=== PATIENT | female | born 1990 | race Caucasian/White ===

== ENCOUNTER → 2017-10-05 11:26 | Outpatient (CLI) | payer MEDICAID, SELFPAY ==
[2017-10-05 12:45] LABS: Color, Urine Yellow (Yellow); Glucose, Dipstick Normal (Normal); Ketone-Dipstick Negative (Negative); Leukocyte Esterase-Dipstick 500 /ul (Negative); Nitrite-Dipstick Negative (Negative); Occult Blood-Urine Negative /ul (Negative); Protein-Dipstick Negative (Negative); Urine Bilirubin Dipstick Negative (Negative); Urine Clarity Clear (Clear); Urine Urobilinogen Normal (Normal)
[2017-10-05 12:51] LABS: Absolute Lymphocyte Count 2.36 X10^3/ul (0.83-4.51); Absolute Neutrophil Count 11.1 X10^3/uL (2.0-7.7); Basophil# 0.02 X10^3/uL; Basophil% 0.1 % (0-1); Eosinophils% 0.7 % (0-5); Hemoglobin 11.9 g/dl (12.0-15.0); Lymphocyte # 2.36 X10^3/ul (4.0); Lymphocyte % 16.5 % (19-41); Mean Corpuscular Hgb 31.2 pg (27.0-32.0); Mean Corpuscular Volume 91.6 fL (81-99); Mean Platelet Vol. 10.3 fl (6.2-12.0); Monocyte# 0.63 X10^3/uL; Monocyte% 4.4 % (0-10); Neutrophil # 11.11 X10^3/uL (2.7-7.7); Neutrophil % 77.5 % (47-70); Platelet Count 264 K/mm3 (150-450); RBC Distribution Width CV 13.4 % (11.6-14.6); RBC Distribution Width SD 44.2 fl (35.1-43.9); Red Blood Count 3.82 M/mm3 (4.2-5.4); White Blood Count 14.3 K/mm3 (4.4-11.0)
[2017-10-05 12:52] LABS: POSITIVE COUNT NO; POSITIVE DIFFERENTIAL NO; POSITIVE MORPHOLOGY NO
[2017-10-05 13:03] LABS: COTININE Drug Screen Positive (<200 ng/mL)
[2017-10-05 13:09] LABS: Amphetamine Urine VISTA NEGATIVE (<1000 ng/mL); Barbiturate Urine VISTA NEGATIVE (< 200 ng/mL); Benzodiazepine Urine VISTA NEGATIVE (< 200 ng/mL); Cocaine Urine VISTA NEGATIVE (< 300 ng/mL); Ecstacy Urine VISTA NEGATIVE (< 500 ng/mL); Methadone Urine VISTA NEGATIVE (< 300 ng/mL); PCP Urine VISTA NEGATIVE (< 25 ng/mL); THC Urine VISTA NEGATIVE (< 50 ng/mL); Vista UDS pH Range 5
[2017-10-05 13:11] LABS: Glucose Challenge Gest 1H 50g 96 mg/dL (70-140); Thyroid Stim Hormone (TSH) 2.23 uIU/mL (0.358-3.74)
[2017-10-05 15:49] LABS: Chlamydia Trachomatis by PCR Negative (Negative); Group B Strep DNA By PCR Negative (Negative); Internal Control PASS; Neisserai gonorrhoeae by PCR Negative (Negative); Probe Check PASS; Sample Adequacy Control PASS; Specimen Processing Control PASS
[2017-10-06 04:36] LABS: Prenatal RPR NONREACTIVE (NONREACTIVE)
[2017-10-06 11:45] LABS: HEPATITIS B SURFACE AG Negative (Negative); Hep C Antibodies <0.1 s/co ratio (0.0-0.9)
[2017-10-06 12:21] LABS: HIV - WCH Non-Reactive (Nonreactive); Rubella IgG 49.3 IU/mL
== END ==
PROVIDERS: Visit Provider Obstetrics & Gynecology
DX: Z34.83 Encounter for supervision of other normal pregnancy, third trimester (principal); Z11.3 Encounter for screening for infections with a predominantly sexual mode of transmission
CPT/HCPCS: 36415; 80307; 81002; 82950; 84443; 85025; 86703; 86762; 86803; 87081; 87340; 87491; 87591; 87653

== ENCOUNTER 2017-10-10 06:35 | Inpatient (IN) | payer MEDICAID, SELFPAY ==
[2017-10-10 06:37] LABS: ROM Internal Control Test YES-OK TO RESULT pt. (Internal QC); ROM Patient Test POSITIVE (Negative)
[2017-10-10 06:50] VITALS: BMI 31.0
[2017-10-10 06:51] LABS: Amphetamine Urine VISTA NEGATIVE (<1000 ng/mL); Barbiturate Urine VISTA NEGATIVE (< 200 ng/mL); Benzodiazepine Urine VISTA NEGATIVE (< 200 ng/mL); Cocaine Urine VISTA NEGATIVE (< 300 ng/mL); Ecstacy Urine VISTA NEGATIVE (< 500 ng/mL); Methadone Urine VISTA NEGATIVE (< 300 ng/mL); PCP Urine VISTA NEGATIVE (< 25 ng/mL); THC Urine VISTA NEGATIVE (< 50 ng/mL); Vista UDS pH Range 5
[2017-10-10] MEDS: Lactated Ringers 1,000 ML 50 ML IV ×3 (06:58→09:51)
[2017-10-10 07:11] LABS: Hematocrit 34.5 % (37-47); Hemoglobin 11.5 g/dl (12.0-15.0); Mean Corp Hgb Conc 33.3 g/gl (32-36); Mean Corpuscular Hgb 30.4 pg (27.0-32.0); Mean Corpuscular Volume 91.3 fL (81-99); Mean Platelet Vol. 9.9 fl (6.2-12.0); Platelet Count 263 K/mm3 (150-450); RBC Distribution Width CV 13.8 % (11.6-14.6); RBC Distribution Width SD 45.2 fl (35.1-43.9); Red Blood Count 3.78 M/mm3 (4.2-5.4); White Blood Count 15.5 K/mm3 (4.4-11.0)
[2017-10-10 07:18] LABS: Scan Indicated on CBC? Y/N NO
[2017-10-10] MEDS: Oxytocin 30 units/NS 500 ml 30 UNITS/500 ML IV.SOLN 334 UNITS IV (12:00)
--- NOTE | 2017-10-10 12:18 | PCM.OB.VAG ---
Vaginal Delivery Maternal Presentation: Active Labor Presented at 37 weeks in active labor Amniotic Membrane Rupture Type: Spontaneous Rupture of Membrane time: 06 Amniotic Fluid Description: Clear Final TI: 10/25/17 Final TI Source: US >20 weeks Gestational age: 37 Weeks and 6 Days Date of Procedure: 10/10/17 Pre-Operative Diagnosis: labor Post-Operative Diagnosis: same Surgery/ Procedure Performed: Spontaneous Vaginal Delivery Anesthesiologist: Luis Ivy Type of Anesthesia: Epidural Description of Procedure: Admitted at 3 cm dilated progressed to FD over 5 hours then pushed for about 20 minutes to delivery a live male apgars of 8/9. Placenta delivered spontaneously intact with a centrally located 3VC. Uterus contracted well. Small bilateral perurethral first degree tears repaired with 3-0 Rapide suture. Presentation: Vertex Placental Delivery Description: Spontaneous Placenta Disposition: [facility] Percentage of Placenta Abruption: 0 Cord Vessel Description: 3 Vessels Nuchal Cord Compression: Without compression Cord Entanglement: None Drain: Evangelista to straight drain Estimated Blood Loss: 200cc Infant A gender: Male (1 minute): 8 (5 minute): 9 Episiotomy Description: None Laceration: Periurethral Extnsion/lac, 1st degree Medications given after delivery: IV Pitocin Complications: None
[2017-10-10] MEDS: Oxytocin 30 units/NS 500 ml 30 UNITS/500 ML IV.SOLN 167 UNITS IV (12:30)
[2017-10-10] MEDS: 0.9% Saline Lock 10 ML Syringe IV (13:25)
[2017-10-10 16:00] VITALS: BP 108/62; PULSE 100; RESP 18; TEMP 37.1; O2SAT 98
--- NOTE | 2017-10-10 16:33 | CASEMGMT ---
Social Work Labor and Delivery Unit Summary: This insurance writer alerted by veterinary surgeon and nursing staff regarding mother of baby (MOB) presentation for delivery, late and limited care, reported father of baby (FOB) incarcerated. Planned to see MOB tomorrow, as just delivered today. A visitor arrived to the unit to see patient, asking for MOB by name, and asked to go to patients room. There were no visitor restrictions so male allowed onto the unit. Upon entering the unit FOB then stopped at the desk and asked to speak with staff about DNA testing and that MOB does not know that this man is on the unit. This insurance writer and RN Arely Collins met with male visitor in a private room. Listened to male visitors expressed concerns for baby and about MOB. Male visitor identifies self as Randall Dempsey. Randall reports to have had a sexual relationship with MOB about the time that conception would have occurred, and that believes self to be the father. Randall reports the man that MOB is alleging to be the father is in long term due to heave drugs. Randall reports concern that MOB may have been using methamphetamines, due to MOB up and quitting job recently, reportedly acting erratic at work and raging. Randall reports has not seen MOB in quite some time, but has gotten reports from MOBs previous boss. Randall then showed this insurance writer and RN pictures of a baby, telling this insurance writer that the baby is MOBs and that was given this information by MOBs old boss. Randall reports has gone to child support and S about concerns for baby and wanting to have access to baby. Randall reports wish to establish paternity and that has filed on the putative father registry. This insurance writer informed Randall that will need to do some checking to see if this person (MOB) is on the unit and if on the unit MOB would have to agree to visit, and that staff cannot divulge private information, but can listen. This insurance writer asked Randall to wait outside the unit, which Randall complied with, without any type of issues. Met with MOB in room, along with JERAMIE Mcgee and incoming JERAMIE Lee. Asked MOBs mother to leave room for private conversation. MOB asked MOBs mom, via sign language, to leave the room. MOB's mother uses sign language for communication. This insurance writer introduced to self and reason for visit. Informed MOB about male visitor, identifying self as Randall Dempsey, claims to be the father, and wish to see the baby. MOB affect tense, not much of response. Informed MOB that Randall showed this insurance writer pictures of the baby, and that someone has told Randall of MOB delivering the baby. Asked MOB whether would like this person to visit, and whether this man is a potential father. MOB reports this man could be a father technically but that this man has not been around at all during , has no involvement with MOB. MOB reports does not want to see this man, nor to have this man see the baby. Educated MOB that cannot restrict visitors unless MOB becomes Do Not Publish. Educated to what this means, importance of keeping visitor numbers small, and that if MOB has many people coming in and out this will negate the whole purpose of restricting visitors. MOB expressed understanding. MOB chose elephant as the code word. Informed MOB that this insurance writer would be back tomorrow to talk with MOB further. Met with Randall outside of the unit. Informed Randall that appreciate concerns that Randall has expressed, that this insurance writer gets calls frequently with concerns about delivering mothers, that some concerns are valid and some are not. Explained that takes all concerns seriously. Educated Randall that at this time cannot confirm or deny whether the woman and the baby that Randall came to see are on the unit or not. Educated Randall that as an unmarried male in the [facility], Randall is taking the right steps to establish paternity. Randall inquiring whether if DNA is established, whether will be able to get the babys medical records. Educated that DNA establishment does not qualify Randall to have access to medical records, that this would have to be established through custody, releases of information, or court order. Randall remained calmed, thanked this insurance writer, and stated intent to go and finish application at child support. Talked with nursing staff about obtaining a drug screen for baby in light of allegations being made about maternal drug use, though this insurance writer has no proof of allegations to be true, one of the potential fathers allegedly being incarcerated for drugs, and maternal late/limited care. Assessment: MOB cooperative though affect tense and constricted during social workers brief interaction. Randall calm and respectful in interactions. Plan: Will plan to see MOB tomorrow for assessment. -PAVEL Lovelace MSW
[2017-10-10] MEDS: Ibuprofen 600 MG Tablet PO (20:02)
[2017-10-10 20:05] VITALS: BP 122/75; PULSE 94; RESP 18; TEMP 37.2; O2SAT 96
[2017-10-11 01:00] VITALS: BP 95/55; PULSE 85; RESP 18; TEMP 37.5
[2017-10-11] MEDS: Ibuprofen 600 MG Tablet PO ×2 (02:05→11:44)
[2017-10-11 04:00] VITALS: BP 90/53; PULSE 68; RESP 18; TEMP 36.3
[2017-10-11 04:41] LABS: Hematocrit 31.7 % (37-47); Hemoglobin 10.6 g/dl (12.0-15.0); Mean Corp Hgb Conc 33.4 g/gl (32-36); Mean Corpuscular Hgb 30.9 pg (27.0-32.0); Mean Corpuscular Volume 92.4 fL (81-99); Mean Platelet Vol. 9.9 fl (6.2-12.0); Platelet Count 237 K/mm3 (150-450); RBC Distribution Width CV 13.7 % (11.6-14.6); RBC Distribution Width SD 45.3 fl (35.1-43.9); Red Blood Count 3.43 M/mm3 (4.2-5.4); White Blood Count 17.5 K/mm3 (4.4-11.0)
[2017-10-11 04:42] LABS: Scan Indicated on CBC? Y/N NO
--- NOTE | 2017-10-11 08:29 | PCM.PN.OB ---
Subjective: Doing well no complaints. Bleeding appropriate. Objective: Afeb VSS - Physical Exam General: Alert, Oriented x3, Cooperative, No apparent distress Lungs: Clear to auscultation, Normal air movement Cardiovascular: Regular rate, Regular Rhythm Abdomen: Soft, Non Tender, Non-Distended Extremities: No edema Skin: No rashes Neurological: Neuro grossly intact Psych/Mental Status: Normal Affect Comment: Lochia appropriate Vital Signs Temp Pulse Resp BP Pulse Ox 97.3 F L 68 18 90/53 L 96 10/11/17 04:00 10/11/17 04:00 10/11/17 04:00 10/11/17 04:00 10/10/17 20:05 Oxygen Delivery Method Room Air Weight: 186 lb 11.704 oz Body Mass Index (BMI) 31.0 Intake and Output for Last 24 Hours 10/09/17 10/10/17 10/11/17 23:59 23:59 23:59 Intake Total 2139 / 2139 Balance 2139 / 2139 Laboratory Tests Past 24 Hrs 10/10/17 10/11/17 06:55 04:25 WBC 17.5 H RBC 3.43 L Hgb 10.6 L Hct 31.7 L MCV 92.4 MCH 30.9 MCHC 33.4 RDW 13.7 RDW Differential 45.3 H Plt Count 237 MPV 9.9 Blood Type O POSITIVE Antibody Screen NEGATIVE Medical Necessity - Tobacco Use Smoking Status: Heavy Smoker (>10/day) Assessment/Plan Doing well. No complaints. Continue routine PP care.
[2017-10-11 09:13] VITALS: BP 106/52; PULSE 87; RESP 18; TEMP 37.1; O2SAT 96
[2017-10-11] MEDS: Prenatal Vits Tablet 1 TABLET PO (11:45)
[2017-10-11 11:58] VITALS: BP 91/50; PULSE 79; RESP 16; TEMP 37.2; O2SAT 98
[2017-10-11 16:23] VITALS: BP 101/61; PULSE 84; RESP 16; TEMP 36.8; O2SAT 96
[2017-10-11] MEDS: Acetaminophen 500 MG Tablet 1000 MG PO (16:33)
[2017-10-11 19:31] VITALS: BP 107/54; PULSE 79; RESP 18; TEMP 36.8
[2017-10-12] MEDS: Ibuprofen 600 MG Tablet PO ×2 (00:42→08:38)
[2017-10-12 00:56] VITALS: BP 107/61; PULSE 89; RESP 16; TEMP 36.6
--- NOTE | 2017-10-12 06:29 | PCM.PN.OB ---
Subjective: No specific complaints. Breast feeding. Bleeding light. Objective: Afeb VSS - Physical Exam General: Alert, Oriented x3, Cooperative, No apparent distress Lungs: Clear to auscultation, Normal air movement Cardiovascular: Regular rate, Regular Rhythm Abdomen: Soft, Non Tender, Non-Distended, - - Fundus nontender Extremities: No edema, No Calf Tenderness Skin: No rashes Neurological: Neuro grossly intact Psych/Mental Status: Normal Affect Comment: LOchia light Vital Signs Temp Pulse Resp BP Pulse Ox 97.9 F 89 16 107/61 96 10/12/17 00:56 10/12/17 00:56 10/12/17 00:56 10/12/17 00:56 10/11/17 16:23 Oxygen Delivery Method Room Air Weight: 186 lb 11.704 oz Body Mass Index (BMI) 31.0 Intake and Output for Last 24 Hours 10/10/17 10/11/17 10/12/17 23:59 23:59 23:59 Intake Total 2138 / 2138 Balance 2138 Medical Necessity - Tobacco Use Smoking Status: Heavy Smoker (>10/day) Assessment/Plan Doing well on PP day#2. Cleared for discharge home today. Home going instructions and warnings given.
--- NOTE | 2017-10-12 06:31 | PCM.DC.SUM ---
Discharge Date and Diagnosis Date of Admission: 09/12/17 Date of Discharge: 10/12/17 - Primary Discharge Diagnosis S/P Hospital Course and Treatment Consultations 10/10/17 06:41 Consult: Anesthesia Routine Comment: Reason For Exam: Operations: None Procedures: - - , epidural Summary of Care Provided: The patient is a 27 year old F [presented in active labor. Progressed to FD then pushed to deliver a live without complication. Post course unremarkable. Discharged home on PP day#2.] Discharge Diet: No Restrictions Discharge Activity: Return to Normal Activity, May Drive, May Shower Return to work on:: 12/11/17 May shower in (days): 0 May resume sexual activity in: 6 weeks Call your doctor if your incision/area has: Sudden Increased Bleeding, Foul Smelling Discharge Call your doctor if you observe: Fever of 101 or Higher, Inability to urinate, Inability to have a bowel movement, Using more than one pad per hour, Shortness of breath, Chest pain, Calf discomfort, Uncontrolled pain Cleanse incision/area with: Soap & Water Home Medications: Medications to take at Discharge Pnv 11-Iron Fum-Folic Acid-Om3 [Virt-Faheem Dha Softgel] 1 each PO 10/10/17 Primary Care Physician: Care Physician,No Primary [Primary Care Provider] - Please Follow Up With: Naldo Burciaga MD When: 6 weeks Disposition: Home Minutes spent on discharge:: 15 Patient Condition:: Good Medical Necessity - Tobacco Use Smoking Status: Heavy Smoker (>10/day) Meaningful Use Info Meaningful Use Diagnoses (Choose all that apply): None applicable
--- NOTE | 2017-10-12 06:36 | DCINST_ITS ---
Discharge Diet: No Restrictions Discharge Activity: Return to Normal Activity, May Drive, May Shower Return to work on:: 12/11/17 May shower in (days): 0 May resume sexual activity in: 6 weeks Call your doctor if your incision/area has: Sudden Increased Bleeding, Foul Smelling Discharge Call your doctor if you observe: Fever of 101 or Higher, Inability to urinate, Inability to have a bowel movement, Using more than one pad per hour, Shortness of breath, Chest pain, Calf discomfort, Uncontrolled pain Cleanse incision/area with: Soap & Water Additional Instructions: If you experience any of the following, contact your healthcare provider. * Bleeding that soaks a pad every hour for 2 hours * Fever 100.4 or higher * Unrelieved incision or abdominal pain * Swelling, redness, discharge or bleeding from your incision or episiotomy site * Your incision begins to separate * Problems urinating (including inability to urinate or burning while urinating) . * Visual changes * Severe headache * Flu-like symptoms * Pain or redness in one of both of your breasts * Pain, warmth, tenderness or swelling in your legs, especially the calf area * Frequent nausea and vomiting * Symptoms of depression or anxiety If you experience any of the following, call 911 or go to the nearest Emergency Room. * Chest pain * Problems breathing * Seizure activity * Partial or complete paralysis of a body part, slurred speech, weakness or drooping of the face, or a sudden inability to walk or hold your balance Allergies/Adverse Reactions: Allergies No Known Allergies Allergy (Verified 10/10/17 06:50) Medications to take at Discharge Pnv 11-Iron Fum-Folic Acid-Om3 [Virt-Faheem Dha Softgel] 1 each PO 10/10/17 Ibuprofen 600 mg PO 4X/DAY PRN #30 tab 10/12/17 The following prescriptions were given: Ibuprofen 600 mg PO 4X/DAY PRN #30 tab PRN Reason: pain or cramping Please Follow Up With: Naldo Burciaga MD When: 6 weeks Primary Care Physician: Care Physician,No Primary [Primary Care Provider] - Test Results: Test results from this visit will be discussed in further detail at your follow- up appointment, if applicable. Proposed Discharge Date: 10/12/17
[2017-10-12 08:25] VITALS: BP 105/57; PULSE 82; RESP 16; TEMP 37.7; O2SAT 97
--- NOTE | 2017-10-12 11:05 | CASEMGMT ---
Social Work Assessment Labor and Delivery Unit Date of Referral: 10/10/2017 Time of Referral: 1200 Referred By: verbal notification from nursing and student assistant Date of Intervention: 10/12/2017 Time of Intervention: 1100 Reason for Referral: Late and limited care - one OBGYN visit at 37 weeks; alleged father of baby incarcerated at this time History obtained from: Medical record and patient/mother of baby (MOB) [facility] Household composition: MOB, MOBs mother, and MOBs stepfather. MOB intends for baby boy Xavier Salinas to return to this home at time of discharge. MOB reports alleged father Rodney Salinas will also be living in this home, starting at the end of November 2017. Patient's parent/guardian status: MOB reports currently involved with Rodney Salinas (born 12.07.86) and whom MOB believes to be the father of the baby. MOB reports has known Rodney for 11 years and this evolved into a romantic relationship. MOB unable to say however, how long has been in a romantic relationship with this man. Xavier would be the first child for MOB and Rodney together. Per MOB, Rodney has 3 other biological children and one adopted child, all girls ranging in ages of almost 9 to 6 or 7. Note, a man by the name of Randall Dempsey presented to the labor and delivery unit on 10.10.17 claiming to the be father of baby Discussed with MOB question of paternity. MOB reports there is a small remote chance that Randall could be the father, but that Randall has not been around at all this whereas Rodney has. MOB reports that Xavier looks like a mixture of MICHELLE and Rodney, rather than Randall. MOB does deny safety concerns by either Rodney or Randall. MOB denies any history of violence with Rodney, any control, intimidation or abuse of any form. Medical History: MICHELLE is G1, P0 to 1 after delivering Xavier. MIC[facility]LE [facility], and then one care visit at the OBGYN office 10.05.17 at 37 weeks. Infant born at 37 weeks, weighing 5 pounds 12 ounces, with Apgars 8 and 9. Educational Status: MOB completed through the 10th grade, dropped out in 11th grade. MOB reports has been taking [employer] classes and plans to pursue this in the next couple of months. MOB denies any issues with reading, writing, or learning comprehension. Financial Status: MOB does not currently work. MOB reports left job at [employer] in August, around the time of [facility] to [facility]. MOB reports had worked there for 7 years, but got tired of being blamed for others mistakes. MOB reports her parents are supporting MOB at this time. Infant Supplies: MOB reports a friend gave MOB a crib. Reports to have clothing, diapers, wipes, and a breast pump. MOB reports belief that has a few bottles, hoping to breast feed. MOB reports may switch to formula at some point and plans to use WIC. Childcare/Caregiver(s): MOB or MOBs mother. Transportation: MOB has a drivers permit. MOBs mother and stepfather help with transportation. Programs/Agencies Involved: MOB reports to have food and medical through [facility]. Did use [facility] one time. MOB reports intent to apply for WIC and reports interest in Early Head Start program (over [employer]). Children Services/Legal Issues: No reports of any legal issues, or children services issues for MOB. Behavioral Health Issues: Mental Health History: MOB reports a couple of years ago had some panic attacks, was prescribed Lexapro by a family doctor but took self off after a short time. MOB reports to feel anxiety is managed at this time, has learned to cope, and does not need medicine. MOB denies any history of counseling, suicidal ideation, plan, intent or past attempts. No identified thoughts of harming others. MOB reports mood is good, describing mood as in awe of the new baby. 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 MOB reports used Meth for 3 years and has been clean from this substance for a long time. MOB unable to give exact time frame, but reports it has been a long time, and denies there has been any use during this . MOB reports past history of marijuana use, denies any use in . MOB denies other illicit drug use history including heroin, cocaine, narcotic prescriptions or other drugs. MOB denies alcohol use in and does like to drink in general. MOB does smoke tobacco, at the beginning of the smoked a pack and a half a day, and by the end down to half a pack a day. History of caffeine use at the beginning of . Drug Screens: maternal screens negative on 10.05.18 and 10.10.18. 's urine drug screen negative (not the first urine, but about the third per nursing report) and meconium is pending. Family/Social Stressors: Unplanned and unexpected . MOB admits to being in denial about actually being though did suspect for a while that may be . MOB reports a couple of months prior to August started to feel movement and began to suspect, but then when went to care center for confirmation it became real. MOB reports although was in denial of the , did not consider adoption or . MOB reports delayed care from August to September due to insurance issues. MOBs current boyfriend in [facility] until at least the end of November 2017 for burglary issues, and some drug related issues. MOB reports boyfriend Rodney, who MOB believes to be the father, has issues with methamphetamines. MOB reports Rodney has identified a desire to remain sober, plans on counseling after release from [facility], and also will be on probation. Paternity is now being questioned, as a second male has come forward claiming to be the father. MOB reports unhappiness with this as the possibility is only slight and this man has not been involved with MOB at all throughout this . Support Systems: MOB reports her mother is a strong practical support, and then MOBs stepfather is a strong emotional support. MOB reports to have some friends who have been visiting and who are willing to help MOB out after discharge. Depression/Shaken Baby/Safe Sleeping: MOB educated to depression and anxiety, risk for such, and importance of seeking out help and support in the period. Educated to safe sleeping. MOB able to give appropriate response about shaken baby prevention. ASSESSMENT: MOB pleasant, cooperative and nondefensive with this filing writer. Affect full, mood calm overall though did cry and became tenser when discussion of paternity ensued. MOB remained polite, and able to express frustration about Randall coming forward now when has not been around at all during this . MOB cried when talking about paternity issues. MOB held good eye contact and did offer to this filing writer MOBs history of drug abuse. Educated MOB to recommendation of no drug use, especially while . MOB denies use of illicit substances at all during this , and denies desire or intent to start back to using. No drug screens to indicate otherwise. MOB indicated parents are sober and health supports, and that when Rodney gets out of [facility] he will be on probation and not substances including alcohol will be allowed in the home. Talked with MOB about making safe life choices and ensuring baby is safe. MOB reports to have needed baby supplies, reports to have an emotional connection to baby, and to have adequate support from parents. MOB open to Early Head Start referral, as well as information on local resources for self and baby. MOB denies any other needs for home going. Observed MOB doing skin to skin with baby, holding baby gently, talking to baby, kissing to baby and smiling at baby. MOBs interactions with baby seeming appropriate. PLAN: MOB and baby to home today. MOB has been given [facility] Community resource packet, depression packet, WIC applications, Community Action brochure and referral form for Early Head Start signed. Will monitor for babys meconium drug screen results and make referrals as indicated based on results. -PAVEL Lovelace, TITLE I DIRECTOR
--- NOTE | 2017-10-12 14:10 | CASEMGMT ---
Social Work Labor and Delivery Unit Faxed Early Head Start referral form, which mother of baby signed to [phone]. -COLLEEN Lovelace, HALVER MACHINE OPERATOR
== END 2017-10-12 12:15 | disposition home or self-care (01) | DRG 373 ==
LOC: WPOUT 06:39
PROVIDERS: Obstetrics & Gynecology; Admitting Provider Obstetrics & Gynecology; Visit Provider Obstetrics & Gynecology
DX: O99.334 Smoking (tobacco) complicating childbirth (principal); O70.0 First degree perineal laceration during delivery; Z3A.37 37 weeks gestation of pregnancy; Z37.0 Single live birth
CPT/HCPCS: 59050; 80307; 84112; 85027; 86850; 86900; 99218; J7120; A4216; G0378

== ENCOUNTER 2017-10-16 12:45 | Outpatient (CLI) | payer MEDICAID, SELFPAY | END 2017-10-16 13:45 | disposition home or self-care (01) | LOC: WPOUT 13:50 → WP 13:51 | PROVIDERS: Visit Provider Obstetrics & Gynecology | DX: Z39.1 Encounter for care and examination of lactating mother (principal) | CPT/HCPCS: 96152 ==

== ENCOUNTER → 2018-06-05 11:49 | Outpatient (CLI) | payer MEDICAID, SELFPAY ==
[2018-06-07 03:07] LABS: Chlamydia By Nucleic Acid AMP Negative (Negative)
[2018-06-07 15:02] LABS: Gonococcus By Nucleic Acid AMP Negative (Negative)
[2018-06-08 14:49] LABS: HPV HC, High Risk Positive (Negative); HPV Reflexed? YES, CHARGE PATIENT
== END ==
PROVIDERS: Visit Provider Obstetrics & Gynecology
DX: Z12.4 Encounter for screening for malignant neoplasm of cervix (principal); Z11.3 Encounter for screening for infections with a predominantly sexual mode of transmission
CPT/HCPCS: 87491; 87591; 87624; 88175; G0145

== ENCOUNTER → 2018-06-13 15:06 | Outpatient (CLI) | payer MEDICAID, SELFPAY ==
[2018-06-13 16:41] LABS: Color, Urine Yellow (Yellow); Glucose, Dipstick Normal (Normal); Ketone-Dipstick Negative (Negative); Leukocyte Esterase-Dipstick 25 /ul (Negative); Nitrite-Dipstick Negative (Negative); Occult Blood-Urine Negative /ul (Negative); Protein-Dipstick Negative (Negative); Specific Gravity, Urine 1.015 (1.002-1.030); Urine Bilirubin Dipstick Negative (Negative); Urine Clarity Clear (Clear); Urine Urobilinogen Normal (Normal)
[2018-06-13 16:43] LABS: Absolute Lymphocyte Count 2.26 X10^3/ul (0.83-4.51); Absolute Neutrophil Count 8.6 X10^3/uL (2.0-7.7); Basophil# 0.02 X10^3/uL; Basophil% 0.2 % (0-1); Eosinophil# 0.09 X10^3/uL; Eosinophils% 0.8 % (0-5); Hematocrit 34.3 % (37-47); Hemoglobin 11.7 g/dl (12.0-15.0); Lymphocyte # 2.26 X10^3/ul (4.0); Lymphocyte % 19.5 % (19-41); Mean Corp Hgb Conc 34.1 g/gl (32-36); Mean Corpuscular Hgb 30.8 pg (27.0-32.0); Mean Corpuscular Volume 90.3 fL (81-99); Mean Platelet Vol. 9.9 fl (6.2-12.0); Monocyte# 0.56 X10^3/uL; Monocyte% 4.8 % (0-10); Neutrophil % 74.1 % (47-70); Platelet Count 288 K/mm3 (150-450); RBC Distribution Width CV 13.3 % (11.6-14.6); White Blood Count 11.6 K/mm3 (4.4-11.0)
[2018-06-13 16:48] LABS: POSITIVE COUNT NO; POSITIVE DIFFERENTIAL NO; POSITIVE MORPHOLOGY NO
[2018-06-13 16:53] LABS: COTININE Drug Screen Positive (<200 ng/mL)
[2018-06-13 16:57] LABS: Amphetamine Urine VISTA NEGATIVE (<1000 ng/mL); Barbiturate Urine VISTA NEGATIVE (< 200 ng/mL); Benzodiazepine Urine VISTA NEGATIVE (< 200 ng/mL); Cocaine Urine VISTA NEGATIVE (< 300 ng/mL); Ecstacy Urine VISTA NEGATIVE (< 500 ng/mL); Methadone Urine VISTA NEGATIVE (< 300 ng/mL); PCP Urine VISTA NEGATIVE (< 25 ng/mL); THC Urine VISTA NEGATIVE (< 50 ng/mL); Vista UDS pH Range 7
[2018-06-13 16:59] LABS: Thyroid Stim Hormone (TSH) 1.25 uIU/mL (0.358-3.74)
[2018-06-13 17:40] LABS: HIV - WCH Non-Reactive (Nonreactive); Rubella IgG 43.9 IU/mL
[2018-06-15 03:41] LABS: Prenatal RPR NONREACTIVE (NONREACTIVE)
[2018-06-16 03:07] LABS: AFP MoM Value 1.46 (.); AFP Value-EIA 52.9 ng/mL (.); Comment Report (.); DIA MoM Value 1.65 (.); DIA Value-EIA 251.76 pg/mL (.); DSR (By Age) 805 (.); DSR (Second Trimester) 3725 (.); Gestational Age 17.6 WEEKS (.); Insulin Dep Diabetes No (.); Maternal Age At EDD 28.7 yr (.); hCG MoM 0.71 (.); hCG Value 18357 mIU/mL (.)
[2018-06-16 14:34] LABS: Gestat. Age Based On Ultrasound (.); HEPATITIS B SURFACE AG Negative (Negative); Hep C Antibodies <0.1 s/co ratio (0.0-0.9)
== END ==
PROVIDERS: Visit Provider Obstetrics & Gynecology
DX: Z34.82 Encounter for supervision of other normal pregnancy, second trimester (principal)
CPT/HCPCS: 36415; 80307; 81002; 82105; 82677; 84443; 84702; 85025; 86336; 86703; 86762; 86803; 87340

== ENCOUNTER 2018-07-18 00:20 | Emergency (ER) | payer MEDICAID, SELFPAY ==
[2018-07-18 00:20] VITALS: BP 116/77; PULSE 105; RESP 16; TEMP 36.9; O2SAT 96; BMI 29.6
--- NOTE | 2018-07-18 00:29 | ED.VISSUMM ---
- ER Visit Summary Date of Service: 07/18/18 Chief Complaint: External hemorrhoid History of Present Illness: The patient is a 28 F patient is G2, P1 at approximately 20 weeks gestation. She presents with an external hemorrhoid. States that she is noticed some pain of the area over the past 24 hours. States tonight, it worsened. She denies any fevers or chills. She does have some pain with moving her bowels, but is still doing this without issue. She has no history of Crohn's disease. She has no history of rectal fissure. She has been compliant with her vitamins. She is otherwise been in her normal state of health. Physical Examination: Vital signs reviewed General: Well-nourished, well-developed Head: Normocephalic, atraumatic Eyes: Pupils equal and reactive, extraocular muscles intact Neck, supple, no lymphadenopathy Heart: Regular rate and rhythm Respiratory: No distress, clear bilaterally Abdomen: Soft, nontender, nondistended, no peritoneal signs rectal exam: Patient does have a thrombosed hemorrhoid at 3 o'clock position. There is no evidence of abscess. Back: Nontender Extremities: Nontender, no edema, no cords Skin: Normal color no rash Neuro: Alert and oriented, no focal or lateralizing deficits Test Results: [] Emergency Department Course and Treatment: The patient presents with a thrombosed hemorrhoid. It was anesthetized with lidocaine with epinephrine locally. A small incision was made. Clots were able to be expressed. The hemorrhoid had significantly decreased in size. There is no persistent bleeding. Patient will be given Anusol and will continue sitz bath's. She is given outpatient surgery follow-up to have a wound reevaluation in the next 2 days. She is comfortable with this plan of care and will be discharged home. Treatment Plan: [] Disposition: Discharge Impression: 1. Thrombosed external hemorrhoid 2. Incision and drainage This note was generated with [employer] dictation software. It may contain incorrect words, spelling, and punctuation that were not noted in review of the chart prior to signing ED Disposition - Plan for ED Patient: Instructions: ED Hemorrhoids Prescriptions: Hydrocortisone Acetate Cream [Anusol Hc] 1 applic RECTAL BID PRN PRN #1 tube PRN Reason: Rectal Discomfort Referrals: Cammy Murphy MD [STAFF PHYSICIAN] - 2 Days for wound check
[2018-07-18 01:12] VITALS: BP 130/82; PULSE 70; RESP 16; O2SAT 100
== END 2018-07-18 01:13 | disposition home or self-care (01) ==
PROVIDERS: Emergency Provider Emergency Medicine
DX: O22.42 Hemorrhoids in pregnancy, second trimester (principal); Z3A.20 20 weeks gestation of pregnancy
CPT/HCPCS: 46083; 99284

== ENCOUNTER → 2018-08-29 16:44 | Outpatient (CLI) | payer MEDICAID, SELFPAY ==
[2018-08-29 17:47] LABS: Hematocrit 30.7 % (37-47); Hemoglobin 10.5 g/dl (12.0-15.0); Mean Corp Hgb Conc 34.2 g/gl (32-36); Mean Corpuscular Volume 90.6 fL (81-99); Mean Platelet Vol. 9.5 fl (6.2-12.0); Platelet Count 308 K/mm3 (150-450); RBC Distribution Width CV 13.3 % (11.6-14.6); RBC Distribution Width SD 43.3 fl (35.1-43.9); Red Blood Count 3.39 M/mm3 (4.2-5.4); White Blood Count 13.2 K/mm3 (4.4-11.0)
[2018-08-29 17:53] LABS: Glucose Challenge Gest 1H 50g 107 mg/dL (70-140)
[2018-08-29 17:56] LABS: Scan Indicated on CBC? Y/N NO
== END ==
PROVIDERS: Visit Provider Obstetrics & Gynecology
DX: Z34.83 Encounter for supervision of other normal pregnancy, third trimester (principal)
CPT/HCPCS: 82950; 85027

== ENCOUNTER 2018-09-08 12:25 | Emergency (ER) | payer MEDICAID, SELFPAY ==
[2018-09-08 12:26] VITALS: BP 109/55; PULSE 100; RESP 16; TEMP 36.1; O2SAT 95; BMI 29.8
--- NOTE | 2018-09-08 12:45 | VDUE_ITS ---
Reason For Study: SWELLING. Right Proximal Right jugular vein is spontaneous, widely patent, phasic, with no intraluminal echogenicity noted. Right subclavian vein is spontaneous, widely patent, phasic, with no intraluminal echogenicity noted. Right Lower Arm Right radial vein is compressible. Right ulnar vein is compressible. Right Arm Right axillary vein is spontaneous, patent, phasic, competent, compressible and demonstrates augmentation. Right brachial vein is compressible. Right cephalic vein is compressible. Right basilic vein is compressible. Interpretation Summary No evidence for acute deep venous thrombosis[right] upper extremity with patent and compressible cephalic and basilic veins. Ordering Physician: Nella Augustin Performed By: Kush Lopes RVT ?
--- NOTE | 2018-09-08 13:45 | ED.VISSUMM ---
- ER Visit Summary Date of Service: 09/08/18 Chief Complaint: Lump on right arm] History of Present Illness: The patient is a 28 F [presents to the emergency department with a lump in the right arm that she first noticed this morning. Patient denies any trauma. She denies any chest pain or shortness of breath. Denies recent travel or surgery. Patient is 30 weeks .] Physical Examination: [HEENT-PERRLA, EOMI. Cranial nerves II through XII grossly intact. TMs clear. Mucous membranes moist. No adenopathy. Cardiovascular-regular rate and rhythm without murmur or ectopy Lungs-clear to auscultation, chest wall stable without crepitus or subcu emphysema Abdomen-normoactive bowel sounds, soft, nontender, no rebound or rigidity, no peritoneal signs. Extremities-intact ?4, normal range of motion, normal pulses, atraumatic. Right arm-over the anterior aspect of the bicep there is an engorged vein such as a varicose vein would be. It is not firm or indurated.] Test Results: [Venous duplex of the right upper arm obtained was negative for DVT or superficial phlebitis.] Emergency Department Course and Treatment: [None indicated] Treatment Plan: [Advised patient on warm compresses to the area and follow-up with her MATERIAL HAULER. Patient also will be referred to primary care physician social media content specialist for no doc.] Disposition: [Discharged home in stable condition.] Impression: [Varicose vein right upper arm] This note was generated with [employer] dictation software. It may contain incorrect words, spelling, and punctuation that were not noted in review of the chart prior to signing ED Disposition - Plan for ED Patient: Referrals: Care Physician,No Primary [Primary Care Provider] -
--- NOTE | 2018-09-08 13:47 | ED.DEP ---
ED Disposition - Plan for ED Patient: Instructions: THROMBOPHLEBITIS, Superficial Referrals: Care Physician,No Primary [Primary Care Provider] - Shan Abbott MD [STAFF PHYSICIAN] - 3-5 Days
== END 2018-09-08 14:01 | disposition home or self-care (01) ==
PROVIDERS: Emergency Provider Emergency Medicine
DX: O22.03 Varicose veins of lower extremity in pregnancy, third trimester (principal); I86.8 Varicose veins of other specified sites; O99.333 Smoking (tobacco) complicating pregnancy, third trimester; Z3A.30 30 weeks gestation of pregnancy
CPT/HCPCS: 93971; 99283

== ENCOUNTER → 2018-10-24 14:16 | Outpatient (CLI) | payer MEDICAID, SELFPAY | PROVIDERS: Visit Provider Obstetrics & Gynecology | DX: Z36.85 Encounter for antenatal screening for Streptococcus B (principal) | CPT/HCPCS: 87081 ==

== ENCOUNTER 2018-11-16 05:35 | Inpatient (IN) | payer MEDICAID, SELFPAY ==
[2018-11-16] MEDS: Lactated Ringers 500 ML 999 ML IV (05:55)
[2018-11-16 06:03] VITALS: BMI 29.8
[2018-11-16 06:16] LABS: Absolute Lymphocyte Count 2.99 X10^3/uL (0.83-4.51); Absolute Neutrophil Count 11.7 X10^3/uL (2.0-7.7); Basophil# 0.04 X10^3/uL; Basophil% 0.3 % (0-1); Eosinophil# 0.07 X10^3/uL; Eosinophils% 0.4 % (0-5); Hematocrit 34.1 % (37-47); Lymphocyte # 2.99 X10^3/ul (4.0); Mean Corp Hgb Conc 35.2 g/dL (32-36); Mean Corpuscular Hgb 31.4 pg (27.0-32.0); Mean Corpuscular Volume 89.3 fL (81-99); Monocyte# 0.79 X10^3/uL; NRBC Flagged by Analyzer 0 % (0-5); Neutrophil # 11.73 X10^3/uL (2.7-7.7); Neutrophil % 74.6 % (47-70); Platelet Count 308 K/mm3 (150-450); RBC Distribution Width CV 13.2 % (11.6-14.6); RBC Distribution Width SD 43.3 fl (35.1-43.9); Red Blood Count 3.82 M/mm3 (4.2-5.4); White Blood Count 15.7 K/mm3 (4.4-11.0)
[2018-11-16] MEDS: Lactated Ringers 1,000 ML 200 ML IV (06:45)
--- NOTE | 2018-11-16 07:09 | PCM.HPOB.BLA ---
History and Physical Date of Admission: 11/16/18 OB HISTORY AND PHYSICAL EXAMINATION History of this : 28 yo female Ab0 with EDC 11/17/2018 by 17 weeks 4 days Ultrasound, presents to Labor and Delivery at 39 6/7 wk with CC of [facility], labor. Planning epidural care remarkable for - 1.) Both of pt's parents were born deaf, 2.) Smokes 1/2 ppd, ATQ 3.) H/O anxiety/panic attacks, treated in the past 4.) Short interval between pregnancies 5.) FOB has 4 children from previous relationships 6.) ANTERIOR placenta 7.) FOB born at 34 weeks 8.) CF testing declined, AFP tetra drawn WNL Pertinent Past Medical History: None. Allergies: No Known Allergies Medications: During - Vitamin tablet Review of Symptoms: Non-contributory PHYSICAL EXAMINATION General Appearance: 28 yo female in no acute distress Comfortable now with epidural Vital Signs: AF, VSS Heart: Lungs: regular respiratory rate Breasts: deferred Abdomen: gravid Pelvis: Cervix: 6/90/-2 slightly posterior Presentation: cephalic Station: Fetus: Size: AGA Movement: present Heart: present Category I tracing. Impression /Plan: Intrauterine . 39 6/7 wk labor. epidural placed per pt request and comfortable IBOW. Will continue labor. Consider AROM. H and P generated at time of admission 11/16/18 1343
[2018-11-16] MEDS: fentaNYL-bupivacaine (epidural) 100 ML BAG EPIDURAL (07:24)
[2018-11-16] MEDS: Ondansetron 4 MG/2 ML Vial IV (07:45)
[2018-11-16] MEDS: Oxytocin 30 units/NS 500 ml 30 UNITS/500 ML IV.SOLN 334 UNITS IV (10:30)
--- NOTE | 2018-11-16 10:39 | PCM.OPRPT ---
Vaginal Delivery Maternal Presentation: Active Labor Amniotic Membrane Rupture Type: Artificial Amniotic Fluid Description: Clear Final TI: 11/17/18 Final TI Source: US <20 weeks Gestational age: 39 Weeks and 6 Days Date of Procedure: 11/16/18 Pre-Operative Diagnosis: IUP Post-Operative Diagnosis: IUP Surgery/ Procedure Performed: Spontaneous Vaginal Delivery Type of Anesthesia: Epidural Description of Procedure: Spontaneous vaginal delivery of a viable male with Apgars of 9/9 from an occiput anterior presentation with clear amniotic fluid and normal three-vessel placenta. Cord around the neck x1 loose. No episiotomy or laceration. Sponges okay. Delivery physician: Primitivo Ivy MD. Presentation: Vertex Placental Delivery Description: Spontaneous Placenta Disposition: [facility] Cord Vessel Description: 3 Vessels Cord Gases drawn per routine: ABG Cord Entanglement: Around neck x 1, loose Estimated Blood Loss: 250 cc Infant A gender: Male (1 minute): 9 (5 minute): 9 Episiotomy Description: None Laceration: None Medications given after delivery: IV Pitocin Complications: None
--- NOTE | 2018-11-16 10:41 | DCINST_ITS ---
Discharge Diet: No Restrictions Discharge Activity: May Shower, May Take a Tub Bath May resume sexual activity in: 4-6 weeks Additional Activity Instructions:: Nothing in the vagina for 4-6 weeks. You may return to work/school in 6 weeks. Call your doctor if you observe: Fever of 101 or Higher, Inability to urinate, Inability to have a bowel movement, Using more than one pad per hour Additional Instructions: If you experience any of the following, contact your healthcare provider. * Bleeding that soaks a pad every hour for 2 hours * Unrelieved incision or abdominal pain * Swelling, redness, discharge or bleeding from your incision or episiotomy site * Your incision begins to separate * Problems urinating (including inability to urinate or burning while urinating). * Visual changes * Severe headache * Flu-like symptoms * Pain or redness in one of both of your breasts * Pain, warmth, tenderness or swelling in your legs, especially the calf area * Frequent nausea and vomiting * Symptoms of depression or anxiety If you experience any of the following, call 911 or go to the nearest Emergency Room. * Chest pain * Problems breathing * Seizure activity * Partial or complete paralysis of a body part, slurred speech, weakness or drooping of the face, or a sudden inability to walk or hold your balance Allergies/Adverse Reactions: Allergies No Known Allergies Allergy (Verified 09/08/18 12:26) Medications to take at Discharge Vits [Prenatabs FA] 1 tab PO DAILY 11/16/18 Please Follow Up With: Primitivo Ivy MD - [phone] When: Call to make an appointment with your doctor in 6 weeks. Primary Care Physician: Care Physician,No Primary [Primary Care Provider] - Test Results: Test results from this visit will be discussed in further detail at your follow- up appointment, if applicable.
--- NOTE | 2018-11-16 10:41 | PCM.DCVAG ---
Discharge Diet: No Restrictions Discharge Activity: May Shower, May Take a Tub Bath May resume sexual activity in: 4-6 weeks Additional Activity Instructions:: Nothing in the vagina for 4-6 weeks. You may return to work/school in 6 weeks. Call your doctor if you observe: Fever of 101 or Higher, Inability to urinate, Inability to have a bowel movement, Using more than one pad per hour Additional Instructions: If you experience any of the following, contact your healthcare provider. Bleeding that soaks a pad every hour for 2 hours Unrelieved incision or abdominal pain Swelling, redness, discharge or bleeding from your incision or episiotomy site Your incision begins to separate Problems urinating (including inability to urinate or burning while urinating). Visual changes Severe headache Flu-like symptoms Pain or redness in one of both of your breasts Pain, warmth, tenderness or swelling in your legs, especially the calf area Frequent nausea and vomiting Symptoms of depression or anxiety If you experience any of the following, call 911 or go to the nearest Emergency Room. Chest pain Problems breathing Seizure activity Partial or complete paralysis of a body part, slurred speech, weakness or drooping of the face, or a sudden inability to walk or hold your balance Allergies/Adverse Reactions: Allergies No Known Allergies Allergy (Verified 09/08/18 12:26) Medications to take at Discharge Vits [Prenatabs FA] 1 tab PO DAILY 11/16/18 Please Follow Up With: Primitivo Ivy MD - [phone] When: Call to make an appointment with your doctor in 6 weeks. Primary Care Physician: Care Physician,No Primary [Primary Care Provider] - Test Results: Test results from this visit will be discussed in further detail at your follow-up appointment, if applicable.
[2018-11-16 16:00] VITALS: BP 97/42; PULSE 69; RESP 16; TEMP 36.8
[2018-11-16 20:22] VITALS: BP 116/64; PULSE 90; RESP 16; TEMP 36.7; O2SAT 97
[2018-11-16] MEDS: Ibuprofen 600 MG Tablet PO (20:29)
[2018-11-17 00:10] VITALS: BP 103/51; PULSE 69; RESP 17; TEMP 36.9; O2SAT 97
[2018-11-17] MEDS: Acetaminophen 500 MG Tablet 1000 MG PO (00:36)
[2018-11-17 04:45] VITALS: BP 105/48; PULSE 80; RESP 16; TEMP 37.1
[2018-11-17 10:00] VITALS: BP 107/67; PULSE 65; RESP 16; TEMP 36.7
--- NOTE | 2018-11-17 10:29 | PCM.PN.OB ---
Subjective: Patient without complaints. Wants to go home later today if baby is able to go. - Physical Exam Vital Signs Temp Pulse Resp BP Pulse Ox 98.8 F 80 16 105/48 L 97 11/17/18 04:45 11/17/18 04:45 11/17/18 04:45 11/17/18 04:45 11/17/18 00:10 Oxygen Delivery Method Room Air Weight: 182 lb 5.156 oz Body Mass Index (BMI) 29.8 Intake and Output for Last 24 Hours 11/15/18 11/16/18 11/17/18 23:59 23:59 23:59 Intake Total 1999.00 / 1999.00 Output Total 400 / 400 Balance 1600.00 / 1600.00 Medical Necessity - Tobacco Use Smoking Status: Current every day smoker Assessment/Plan Doing well day #1 status post routine spontaneous vaginal delivery. Will discharge to home with routine instructions.
--- NOTE | 2018-11-17 13:26 | CASEMGMT ---
Social Work Referral Date: 11/16/18 Date of Assessment: 08/17/18 Reason for Consult: Resources, support Informant: Nursing staff, chart, and Mother of baby (MOB). Personal Status Mentation. MOB alert and oriented x3, denies any learning or comprehension concerns. Present during assessment: MOB, and father of baby (FOB). FOB was asked to leave the room when this long term care social worker inquired about MOB's safety, substance abuse and mental health history. Hx : 2 Hx Para: 1 Infant Gender: Male Name: Cole Salinas (1min): 9 (5min): 9 Care: Started at 17 weeks, late. was unplanned, but accepted per MOB. Alleged father: Rodney Packp Alleged father involved: Yes Length of Relationship with alleged father of baby: Rickie 2017 FOB Mental Health/AOD/Domestic Violence Hx: Initially MOB denied any legal history for either MOB or FOB. This long term care social worker broached topic that it is noted on patient chart that FOB was in longterm, MOB then stating that FOB is currently on probation as FOB was released from longterm in 2017 for substance abuse and stealing behavior. Per MOB FOB is clean and no longer abusing substances. MOB stating that FOB is really trying and is doing well. MOB denies any abuse or concerns with relationship with FOB. FOB Employment: Unemployed, plans to find a job now that is born. FOB stating to have wanted to have time with . Number of Children in the home: This will make four children living within the home. FOB has two daughters ages 9 and 10 that do not share paternity or maternity with this . FOB stating to have custody of both daughters. FOB stating to have two other children that live outside of the home that FOB does not have custody and has a no contact order on. MOB does have another son living in the home as well, Xavier Clarke age 13 months that does not share paternity with this infant. MOB stating no concerns with Randall Xavier father. Custody Comments: MOB and FOB have custody of their perspective children that are living in the home. Living Arrangements: MOB, FOB, and now their four children live with MOB's parents. Education: 10th grade. MOB stating to have dropped out of school. 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 Family Dynamics/Relationships: MOB's parents are both deaf but able to communicate via sign language. MOB denies any concerns with family dynamics or relationships. Supports: MOB identifies MOB's parents and FOAlvaro has main support. MOB currently has other children at home. Transportation: No concerns with transportation. Substance Abuse Hx and Current Pattern of Use MOB stating that both MOB and FOB smoke but outside in the garage. MOB stating to understand the importance of smoking away from and children and risk for SIDS if children are exposed to tobacco smoke. MOB denies any other substance use or abuse. No positive tox screens for MOB. No tox screen completed on infant. Mental Health Hx and Current Status MOB denies mental health concerns or history. MOB denies any depression. Did educate MOB on signs and symptoms of depression, MOB voicing understanding. MOB denies any suicidal thoughts or thoughts to hurt others. Items/Skills List for Infants Care Supplies: MOB stating to have all needed supplies already set up within the home including a crib, car seat, diapers, and clothing. Bonding With : MOB planning to breast feed and reporting that this is going well. MOB stating to have a connection with infant. MOB stating that was not planned but accepted. Observed Maternal/Paternal Child interaction: MOB holding infant and gazing at often during assessment. Emotional Assessment: MOB presenting with a positive and engaged affect. Control: MOB plans to have a tubal completed when able. Resources MOB stating to have been connected with WIC in the past and to know how to utilize if needed. MOB denies any children services involvement in the past or current. MOB denies any [employer] involvement and declines a Help me Grow referral. Resources on depression, safe sleeping, and [facility] resources provided to MOB. Intervention: No referrals indicated at this time. Plan: to discharge to home with MOB and FOB along with other children. Candelario Magana MSW, YAHAIRA
[2018-11-17] MEDS: Ibuprofen 600 MG Tablet PO (15:22)
[2018-11-17 16:00] VITALS: BP 113/71; PULSE 82; RESP 16; TEMP 36.8
--- NOTE | 2018-11-17 16:32 | NURSING ---
0930 Requests discharge today. Physicians aware.
== END 2018-11-17 18:30 | disposition home or self-care (01) | DRG 560 ==
PROVIDERS: Admitting Provider Obstetrics & Gynecology; Visit Provider Obstetrics & Gynecology
DX: O69.81X0 Labor and delivery complicated by cord around neck, without compression, not applicable or unspecified (principal); O99.334 Smoking (tobacco) complicating childbirth; F17.210 Nicotine dependence, cigarettes, uncomplicated; Z3A.39 39 weeks gestation of pregnancy; Z37.0 Single live birth
CPT/HCPCS: 59025; 59050; 85025; 86850; 86900; 86901; 99218; J7120; G0378; J2405

== ENCOUNTER → 2018-12-26 15:05 | Outpatient (CLI) | payer MEDICAID, SELFPAY ==
[2019-01-01 15:10] LABS: HPV APTIMA, High Risk Negative (Negative)
[2019-01-01 15:11] LABS: HPV Reflexed? YES, CHARGE PATIENT
== END ==
PROVIDERS: Visit Provider Obstetrics & Gynecology
DX: R87.810 Cervical high risk human papillomavirus (HPV) DNA test positive (principal); R87.610 Atypical squamous cells of undetermined significance on cytologic smear of cervix (ASC-US)
CPT/HCPCS: 87624; 88175; G0145

== ENCOUNTER 2021-05-30 18:46 | Emergency (ER) | payer SELFPAY ==
[2021-05-30 18:48] VITALS: BP 112/65; PULSE 110; RESP 16; TEMP 36.2; O2SAT 96; BMI 28.2
--- NOTE | 2021-05-30 19:10 | ED.VIS.FEGU ---
HPI HPI - Female History of Present Illness Chief Complaint: Wound Narrative Narrative: 31-year-old female presenting with dysuria. Patient states he has had this for a couple of days. Patient feels like she might have some lymph nodes on the left side of her vagina. Patient denies any vaginal discharge. She is not concerned for . She is not concerned for STDs. States she is not currently sexually active. No fever or chills. No nausea or vomiting. No GI complaints. No history of UTIs. PFSH PFSH Home Medications cephalexin 500 mg PO Q12 #14 cap 05/30/21 [Rx Last Taken Unknown] Allergy/AdvReac Type Severity Reaction Status Date / Time No Known Allergies Allergy Verified 05/30/21 18:47 Social History Smoking Status: Current every day smoker tobacco type: cigarettes ROS ROS ED Constitutional Constitutional ED: Denies fever(s) or subjective Eyes Eyes: Denies blurry vision or diplopia ENT ENT ED: Denies rhinorrhea or sore throat Cardiovascular Cardiovascular: Denies chest pain or palpitations Respiratory/Chest Respiratory/Chest: Denies cough or dyspnea Gastrointestinal Gastrointestinal: Denies abdominal pain, diarrhea, nausea or vomiting Genitourinary Genitourinary ED: Reports dysuria and urinary frequency Musculoskeletal Musculoskeletal: Denies arthralgias or myalgias Integumentary Denies Abrasions or rash Neurologic Neurologic: Denies headache(s) EXAM Physical Exam Const Vital Signs: 05/30/21 18:48 Temperature 97.2 F L Temperature Source Temporal Pulse Rate 110 H Respiratory Rate 16 Blood Pressure 112/65 Blood Pressure Mean 80 Pulse Ox 96 Oxygen Delivery Method Room Air Positive well nourished General Appearance ED: NAD HEENT Reports moist mucous membranes Negative for trauma Eyes PERRL and EOMs intact bilaterally Resp normal respiratory effort Cardio regular rate and regular rhythm GI normal to inspection, nondistended, normoactive bowel sounds External Female Exam: normal appearance of the urethra; Negative for inguinal lymphadenopathy, hernia or erythema Back/Spine no CVA tenderness Neuro oriented x3 Sensorium / Orientation: alert Psych mental status grossly normal Skin no rashes or lesions noted MDM MDM MDM Narrative Medical decision making narrative: Patient presenting with dysuria and concern for lymphadenopathy on the left side of her vaginal region. I examined the external aspect of the vagina do not feel any lymph nodes. No inguinal lymphadenopathy. She not complaining of any vaginal complaints. She has no concern for STDs. Urinalysis showed 500 leukocyte esterase with 10-25 RBCs, 5-10 squamous epithelial cells. No bacteria seen. Counseled patient this is less likely to be a urinary tract infection. I did not have a finding for her symptom of dysuria. She request to be treated with antibiotics until the urine culture could come back. I will send a urine culture. Patient given referral to oncology for follow-up but she does not currently have one. Patient to return precautions. Impression: 1. Dysuria Lab Data Labs: Laboratory Results - last 24 hr 05/30/21 19:15 Urine Color Yellow Urine Clarity Cloudy Urine pH 5.0 Ur Specific [place] 1.030 Urine Protein 30 H Urine Glucose (UA) Normal Urine Ketones Negative Urine Occult Blood 25 H Urine Nitrite Negative Urine Bilirubin Negative Urine Urobilinogen 1 H Ur Leukocyte Esterase 500 H Urine RBC 0 SEEN Urine WBC 10-25 SEEN Ur Squamous Epith Cells 5-10 SEEN Urine Bacteria 0 SEEN Urine Mucus 1+ Urine Test Negative Discharge Plan Triage Chief Complaint: Wound Other Complaint: General Illness Complaint ED Provider: Jose Juan Abel Dx/Rx/DC Orders Instructions: ED Dysuria, Uncertain Cause (Adult) Prescriptions: New cephalexin 500 mg capsule 500 mg PO Q12 Qty: 14 RF: 0 Primary Care Provider: Care Physician,No Primary Referrals: Care Physician,No Primary [Primary Care Provider] - Isabel Gleason [STAFF PHYSICIAN] - 3-5 Days Disposition Disposition: Home, Self Care
[2021-05-30 19:49] LABS: Bacteria 0 SEEN /hpf (None Seen)
[2021-05-30 19:52] LABS: Color, Urine Yellow (Yellow); Glucose, Dipstick Normal (Normal); Ketone-Dipstick Negative (Negative); Leukocyte Esterase-Dipstick 500 /ul (Negative); Nitrite-Dipstick Negative (Negative); Occult Blood-Urine 25 /ul (Negative); Protein-Dipstick 30 mg/dl (Negative); Urine Bilirubin Dipstick Negative (Negative); Urine Clarity Cloudy (Clear); Urine Urobilinogen 1 mg/dl (Normal)
[2021-05-30 19:59] LABS: Internal QC Validated? YES +Cl - CLEAR BKGD; Pregnancy, Urine Negative Negative
[2021-05-30 20:02] LABS: Red Blood Cells-Urine 0 SEEN /hpf (0-5); Squamous Epithelial Cells - UA 5-10 SEEN /hpf (5-10); White Blood Cells 10-25 SEEN /hpf (0-5)
[2021-05-30 20:03] LABS: Mucous, Urine 1+ /hpf (<or=2+)
[2021-05-30] MEDS: Cephalexin 250 MG Capsule 500 MG PO (21:27)
[2021-05-30 21:28] VITALS: BP 122/79; PULSE 100; RESP 18; O2SAT 97
== END 2021-05-30 21:43 | disposition home or self-care (01) ==
PROVIDERS: Emergency Provider Student in an Organized Health Care Education/Training Program; Visit Provider Student in an Organized Health Care Education/Training Program
DX: R30.0 Dysuria (principal); F17.210 Nicotine dependence, cigarettes, uncomplicated
CPT/HCPCS: 81001; 81025; 87086; 87088; 99283